=== PATIENT | male | born 1990 | race Caucasian/White ===

== ENCOUNTER 2024-11-22 07:44 | Emergency (ER) | payer BC, SELFPAY ==
[2024-11-22 07:43] VITALS: BP 131/79; PULSE 66; RESP 16; TEMP 36.5; O2SAT 99; BMI 27.8
--- NOTE | 2024-11-22 07:43 | ED_ITS ---
HPI - Allergic Reaction General Chief complaint: Allergic Reaction Stated complaint: Hives Time Seen by Provider: 11/22/24 07:49 History of Present Illness HPI narrative: 34-year-old male without any significant past medical history comes into the ED from home via EMS for evaluation of allergic reaction. He states that he has been having hives ongoing persistent for the past 3 days. Not getting any worse but not getting any better. He states he has been controlled with the symptoms with Benadryl and NSAIDs. He states that last night he noticed that his lip started to swell, states that he woke up and this persisted therefore decided come into the ED. at time of evaluation patient is speaking full sentences protecting airway no voice changes no stridor no trismus, tolerating secretions. Posterior oropharynx is clear without any signs of obstruction. Lips noted to be slightly swollen but otherwise no gross deformities or any other abnormalities to the face mouth. Denies any other symptoms at this time. Denies any known allergies. Denies any new exposures. Related Data Previous Rx's ?Medication ?Instructions ?Recorded epinephrine 0.3 mg/0.3 mL 0.3 mg (0.3 mL) IM Q5-15M [place] N 11/22/24 injection, auto-injector (EpiPen) anaphylaxis #2 ea famotidine 20 mg tablet (Pepcid) 20 mg PO DAILY 5 days #5 tabs 11/22/24 prednisone 20 mg tablet 20 mg PO BID 5 days #10 tabs 11/22/24 Allergies Allergy/AdvReac Type Severity Reaction Status Date / Time No Known Drug Allergies Allergy Verified 11/22/24 07:47 Review of Systems Review of Systems Narrative: General: Positive allergic reaction Denies fever, chills, weight loss HEENT: Positive swollen lips, Denies headache, eye drainage, eye irritation, head trauma, sore throat, voice change Cardiovascular: Denies any chest pain, palpitations, tachycardia Respiratory: Denies any shortness of breath, cough, wheeze, stridor GI/: Denies any abdominal pain, nausea, vomiting, diarrhea, bright red blood per rectum, melanotic stools, urinary frequency, urinary retention, dysuria, hematuria MSK: Denies any joint pain, muscle pains, swelling Skin: Positive hives Denies any lesions, discoloration Neuro: Denies any headache, lightheadedness, dizziness, fainting, weakness Psych: Denies SI/HI Exam Narrative Exam Narrative: General: Cooperative, well-developed, not in acute distress HEENT: Patient with slightly swollen lips to the upper and lower, however no surrounding erythema, posterior oropharynx is clear without any signs of obstruction uvula is midline, patient is speaking in full sentences protecting airway, no voice changes no stridor trismus tolerating secretions. Normocephalic, atraumatic, PERRLA, normal sclera, eyelids normal Neck: Active full range of motion, atraumatic Chest: Normal to inspection, negative crepitus, no overlying erythema ecchymosis Respiratory: Normal respiratory effort, not in acute respiratory distress, clear to auscultation bilaterally negative cough, wheeze, tachypnea, rhonchi, rales Cardiology: Regular rate rhythm negative gallop, murmur, rubs GI/: No tenderness to palpation, soft, non rigid, normal to inspection, exam deferred MSK: Full active range of motion in all 4 extremities, atraumatic, no tenderness to palpation of any bony prominences Skin: Scattered urticarial rashes noted but does not affect the palms of the hands, soles of the feet or mucosal membranes. Blanchable. Neuro: Alert awake oriented x3, moves all 4 extremities spontaneously, cranial nerves intact, able to answer all questions appropriately follows commands appropriately Psych: Cooperative, negative suicidal or homicidal ideations Initial Vital Signs Initial Vital Signs: Vital Signs Temperature 97.7 F 11/22/24 07:43 Pulse Rate 66 11/22/24 07:43 Respiratory Rate 16 11/22/24 07:43 Blood Pressure 131/79 11/22/24 07:43 Pulse Oximetry 99 11/22/24 07:43 Oxygen Delivery Method Room Air 11/22/24 07:43 Course Orders Ordered: ED Orders 11/22/24 07:50 CBC Auto Diff [Complete Blood Count AUTO DIFF] Stat CMP [Comprehensive Metabolic Panel] Stat Sodium Chloride (Normal Saline 0.9%) 1,000 mls @ 1,000 mls/hr IV BOLUS ONE Stop: 11/22/24 08:41 Last Admin: 11/22/24 07:49 Dose: 1,000 mls/hr Documented By: ES Discontinued Medications Diphenhydramine HCl (Diphenhydramine 50 Mg/Ml Vial) 25 mg IV NOW ONE Stop: 11/22/24 07:43 Last Admin: 11/22/24 07:48 Dose: 25 mg Documented By: IRWIN Famotidine (Famotidine 20 Mg/2 Ml Vial) 20 mg IV NOW ONE Stop: 11/22/24 07:43 Last Admin: 11/22/24 07:49 Dose: 20 mg Documented By: IRWIN Methylprednisolone (Methylprednisolone Succ 125 Mg/2 Ml Vial) 125 mg IV NOW ONE Stop: 11/22/24 07:43 Last Admin: 11/22/24 07:49 Dose: 125 mg Documented By: IRWIN Vital Signs Vital signs: Vital Signs - 8 hr 11/22/24 07:43 Temperature 97.7 F Pulse Rate 66 Respiratory Rate 16 Blood Pressure 131/79 Pulse Oximetry 99 Oxygen Delivery Method Room Air MDM - Allergic Reaction Lab Data 11/22/24 07:50 11/22/24 07:50 Labs: Lab Results 11/22/24 Range/Units 07:50 WBC 5.3 (4.5-11.0) X10^3/uL RBC 5.61 (4.5-5.9) X10^6/uL Hgb 16.0 (13.5-17.5) g/dL Hct 46.6 (41-53) % MCV 83.0 (80-100) fL MCH 28.6 (26-34) PG MCHC 34.4 (30-36) % RDW 13.2 (11.6-14.8) % Plt Count 120 L (150-400) X10^3/uL Neut % (Auto) 70.6 (50-75) % Lymph % (Auto) 19.7 L (25-40) % Sutton % (Auto) 8.3 (3-14) % Eos % (Auto) 1.1 L (2-4) % Baso % (Auto) 0.3 (0-2) % Neut # (Auto) 3700 (7617-7826) /uL Lymph # (Auto) 1000 L (0098-0228) /uL Sutton # (Auto) 400 (0-900) /uL Eos # (Auto) 100 (0-450) /uL Baso # (Auto) 0 (0-100) /uL Sodium 141 (137-145) mmol/L Potassium 4.1 (3.4-5.1) mmol/L Chloride 102 (98-107) mmol/L Carbon Dioxide 29 (22-32) mmol/L BUN 18 (9-20) mg/dL Creatinine 1.23 (0.66-1.25) mg/dL Estimated GFR > 60 (>60) mL/min BUN/Creatinine Ratio 14.6 (6-22) Glucose 100 H (70-99) mg/dL Calcium 9.5 (8.4-10.2) mg/dL Total Bilirubin 0.6 (0.2-1.3) mg/dL AST 36 (17-59) IU/L ALT 43 (<50) IU/L Alkaline Phosphatase 84 (38-126) U/L Total Protein 8.0 (6.3-8.2) g/dL Albumin 4.6 (3.5-5.0) g/dL Globulin 3.4 (1.7-4.1) g/dL Albumin/Globulin Ratio 1.4 (1.0-2.8) MDM Narrative Medical decision making narrative: 34-year-old male no known past medical history presenting from home via EMS for evaluation of allergic reaction. States that he has been having hives for the past 3 days started having swelling to his lips yesterday and into this morning. He has no difficulty breathing swallowing. On exam he just has not urticarial rash diffusely but no specific pattern or area. Does not affect the palms of the hands, soles of the feet or mucosal membrane. Blanchable. Patient is speaking full sentences protecting airway no voice changes no stridor no trismus, I do not believe patient requires epinephrine at time of evaluation. He is tolerating secretions. He has no known allergies, no known new exposures. He was given Solu-Medrol, Pepcid, Benadryl, saline had basic lab work performed without any acute findings. Patient was monitored here with improvement of symptoms, patient will be sent home with symptomatic relief and instructions to follow up with primary care in [facility] operator [facility] in outpatient setting. He verbalized understanding of this and agrees to being discharged home with outpatient follow up Discharge Plan Departure Patient Disposition: Home Clinical Impression: Allergic reaction Activity Restrictions/Additional Instructions: Please follow up with the primary care and an [facility] operator helper Please read the discharge instructions sheet carefully and bring all papers to all doctor follow-up visits, as it may contain information that your doctor may want to see. Disease processes change and evolve, if your symptoms worsen or if you develop any new symptoms that are concerning to you please return for evaluation. Your evaluation today does not show any evidence of any life- threatening/serious illnesses requiring admission to the hospital or surgery. Please follow-up with your doctor for re-evaluation in approximately 1 day. Seek immediate medical attention for any worrisome symptoms. *If you do not have a primary care provider please contact the Resource line at [phone]. They will ask some questions about your medical history and help get you set up with a doctor in the community. Prescriptions: New famotidine [Pepcid] 20 mg tablet 20 mg PO DAILY 5 Days Qty: 5 0RF prednisone 20 mg tablet 20 mg PO BID 5 Days Qty: 10 0RF epinephrine [EpiPen] 0.3 mg/0.3 mL auto-injector 0.3 mg IM Q5-15M PRN (Reason: anaphylaxis) Qty: 2 2RF Rx Instructions: do not exceed 3 doses per episode Referrals: [facility] [Other, Allergy & Immunology] Stand Alone Forms: Patient Portal/API
[2024-11-22 07:44] VITALS: PULSE 66; O2SAT 97
[2024-11-22] MEDS: diphenhydrAMINE 50 MG/ML VIAL 25 MG IV (07:48)
[2024-11-22] MEDS: FAMOTIDINE 20 MG/2 ML VIAL IV (07:49)
[2024-11-22] MEDS: SODIUM CHLORIDE 0.9% 1,000 ML 1000 ML IV (07:49)
[2024-11-22] MEDS: methylPREDNISolone succ 125 MG/2 ML VIAL IV (07:49)
[2024-11-22 07:54] VITALS: BP 91/54; PULSE 58; O2SAT 100
[2024-11-22 07:56] VITALS: BP 93/50; PULSE 64; O2SAT 99
[2024-11-22 08:00] VITALS: PULSE 66; O2SAT 97
[2024-11-22 08:17] LABS: Alanine Aminotransferase 43 IU/L (<50); Albumin 4.6 g/dL (3.5-5.0); Albumin Globulin Ratio 1.4 (1.0-2.8); Alkaline Phosphatase 84 U/L (38-126); Blood Urea Nitrogen 18 mg/dL (9-20); Calcium 9.5 mg/dL (8.4-10.2); Carbon Dioxide 29 mmol/L (22-32); Chloride 102 mmol/L (98-107); Estimated Glomerular Filt Rate > 60 mL/min (>60); Globulin 3.4 g/dL (1.7-4.1); Glucose 100 mg/dL (70-99); HEMOLYSIS < 15 (0-50); Potassium 4.1 mmol/L (3.4-5.1); Sodium 141 mmol/L (137-145); Total Protein 8.0 g/dL (6.3-8.2)
[2024-11-22 08:24] LABS: Hematocrit 46.6 % (41-53); Hemoglobin 16.0 g/dL (13.5-17.5); Lymphocytes Absolute Auto 1000 /uL (1100-4500); Mean Corpuscular HGB Conc 34.4 % (30-36); Mean Corpuscular Hemoglobin 28.6 PG (26-34); Mean Corpuscular Volume 83.0 fL (80-100); Platelet Count 120 X10^3/uL (150-400)
[2024-11-22 08:27] LABS: Add Manual Diff / Slide Review SLIDE REVIEW
[2024-11-22 08:30] VITALS: BP 118/71; PULSE 64; O2SAT 100
[2024-11-22 08:49] LABS: RBC Morphology Normal Morphology
== END 2024-11-22 08:39 | disposition home or self-care (01) ==
LOC: ED 08:57
PROVIDERS: Emergency Provider Student in an Organized Health Care Education/Training Program
DX: L50.9 Urticaria, unspecified (principal); T78.40XA Allergy, unspecified, initial encounter
CPT/HCPCS: 36415; 80053; 85025; 96361; 96374; 96375; 99284; J1200; J2919